=== PATIENT | female | born 1975 | race Caucasian/White ===

== ENCOUNTER 2024-06-04 13:41 | Outpatient (OUT) | payer OTHER, SELFPAY ==
--- NOTE | 2024-06-04 15:03 | P.CN_ITS ---
Consult Note: HPI Data of Consult Patient: new to practice Consult date: 06/04/24 Requesting Physician: Giovanny Estrada MD Primary Care Provider: Alice Silvestre NP Consult Narrative Reason for consult: neck pain Narrative: 48yof who presents for evaluation. longstanding neck, posterior head, bilateral shoulder pain. imaging reviewed, significant for multilevel facet arthropathy throughout cervical spine. has continued in a 6 week course of provider directed home exercises, but has not endorsed lasting relief. uses t#3 and gabapentin, which is prescribed by pcp. denies adverse med side effects. cc:: CC: Giovanny Estrada MD Review of Systems ROS Status of ROS 10 or more systems reviewed and unremark able except as noted in history and below Exam Narrative Exam Narrative: Psych-alert and oriented x 3.? Attentive and appropriate, constitutionally normal, displays normal mood and affect per situation.? There are no obvious deficits in memory, reasoning, or intellect.? Skin-no obvious rashes, bruising, or erythema noted to the patient's area of pain. Extremities-upper extremities are warm with minimal edema and palpable pulses. Cervical- tenderness to palpation noted in the cervical spine and paraspinal musculature.? Pain is elicited with extension, and lateral rotation of the cervical spine.? Range of motion is slightly diminished due to pain. Facet loading maneuvers are positive bilaterally.? Coordination remains intact.? Gait remains non-antalgic. Assessment and Plan Assessment and Plan (1) Cervical spondylosis: Plan 48yof who presents for evaluation. failed conservative measures, as noted. imaging reviewed, as noted. given symptoms and imaging, prudent to attempt diagnostic bilateral c3-4, 4-5 medial branch blocks under fluoroscopic guidance with intention of proceeding to radiofrequency ablation. she is in agreement. meds reviewed, no changes. follow up after procedure.
== END 2024-06-04 13:42 | disposition home or self-care (01) ==
PROVIDERS: PCP Nurse Practitioner Adult Health; Visit Provider Anesthesiology
DX: M47.812 Spondylosis without myelopathy or radiculopathy, cervical region (principal)
CPT/HCPCS: G0463

== ENCOUNTER 2024-06-25 08:21 | Day surgery (SDC) | payer OTHER, SELFPAY ==
[2024-06-25 09:35] VITALS: BP 113/70; PULSE 75; TEMP 36.2; O2SAT 98
[2024-06-25 09:54] VITALS: BP 109/74; PULSE 70; O2SAT 98
[2024-06-25 09:56] VITALS: BP 111/73; PULSE 73; O2SAT 98
[2024-06-25] MEDS: LIDOCAINE HCL 2% 400 MG/20 ML MDV INJ (09:59)
[2024-06-25] MEDS: BUPIVACAINE HCL 0.25% PF 25 MG/10 ML VIAL 6 ML INJ (09:59)
--- NOTE | 2024-06-25 10:03 | W.PM.PROCNOT ---
Date of procedure: 06/25/24 Pre-op diagnosis: Pain due to cervical spondylosis Post-op diagnosis: same as pre-op Procedure: Procedure: Bilateral C3-4, 4-5 medial branch block Medications: Bupivacaine 0.25% 6cc The patient was seen and examined in the preoperative holding area.? The informed consent was obtained and placed on the chart.? The patient was brought to the medical procedure unit and placed in the prone position.? A timeout was completed verifying correct patient, procedure site, positioning, plan, and special equipment.? Using aseptic technique, the needle was placed at left C3.? Under direct fluoroscopic visualization, a Quincke tip needle was advanced to the midpoint of the waist of the articular pillar at the respective medial branch segment. The above-mentioned injectate was placed in a 1 mL aliquot proceeded by negative aspiration.? The needle was removed.? The procedure was completed at all left C4, 5. The same procedure, at the same levels, was then completed on the right side. Insertion site was covered.? Patient was taken to the postprocedural recovery area and monitored for an appropriate length of time before found suitable for discharge in the accompaniment of a responsible adult. Anesthesia: Local Surgeon: Giovanny Estrada Pathology: none sent Condition: stable Disposition: no change
== END 2024-06-25 10:04 | disposition home or self-care (01) ==
LOC: SURGOUT 08:22
PROVIDERS: PCP Nurse Practitioner Adult Health; Visit Provider Anesthesiology
DX: M47.812 Spondylosis without myelopathy or radiculopathy, cervical region (principal)
CPT/HCPCS: 64490; 64491; J0665

== ENCOUNTER 2024-07-05 13:06 | Outpatient (OUT) | payer OTHER, SELFPAY ==
--- NOTE | 2024-07-05 13:26 | PM.CN ---
Consult Note: HPI Data of Consult Patient: known to practice within the last 3 years Requesting Physician: Zoe Lucero NP Primary Care Provider: Alice Silvestre NP Consult Narrative Reason for consult: f/u Narrative: Sabrina Hoffman a pleasant 48 year old female presents for evaluation and management of chronic neck pain unresponsive to heat/ice, tylenol, NSAIDs, PT/HEP greater than 6 weeks. pt has a longstanding hx of neck pain secondary to cervical spondylosis and cervical DDD. currently takes tylenol #3, gabapentin, valium PRN through PCP with minimal benefit. recently underwent bilateral C3-4 C4-5 MBB #1 with little relief per pt, preop pain 7/10 decreasing to 5/10. cc:: CC: Zoe Lucero NP Review of Systems ROS Musculoskeletal Reports: neck pain PFSH PFSH Medical History Upper back pain ?M54.9 - Dorsalgia, unspecified (ICD-10) TMJ (dislocation of temporomandibular joint) ?S03.00XA - Dislocation of jaw, unspecified side, initial encounter (ICD-10) Osteoarthritis ?M19.90 - Unspecified osteoarthritis, unspecified site (ICD-10) Low back pain ?M54.50 - Low back pain, unspecified (ICD-10) Neck pain ?M54.2 - Cervicalgia (ICD-10) Anxiety ?F41.9 - Anxiety disorder, unspecified (ICD-10) Surgical History H/O gynecological procedure ?Z98.890 - Other specified postprocedural states (ICD-10) History of tonsillectomy ?Z90.89 - Acquired absence of other organs (ICD-10) H/O foot surgery ?Z98.890 - Other specified postprocedural states (ICD-10) H/O total hip arthroplasty ?Z96.649 - Presence of unspecified artificial hip joint (ICD-10) Meds Home Medications and Allergies Home Medications ?Medication ?Instructions ?Recorded ?Confirmed ?Type acetaminophen 300 mg-codeine 30 mg 1 tab PO TID 06/04/24 06/25/24 History tablet diazepam 5 mg tablet 5 mg PO BID 06/04/24 06/25/24 History gabapentin 300 mg capsule 600 mg PO TID 06/04/24 06/25/24 History Allergies Allergy/AdvReac Type Severity Reaction Status Date / Time nalbuphine (From Nubain) Allergy Mild Anxiety Verified 06/04/24 15:38 Penicillins Allergy Rash Verified 06/04/24 15:38 Exam Neck & C-Spine Cervical spine: cervical ROM normal, pain with cervical ROM, cervical spine tenderness, paracervical muscle tenderness and trapezius muscle tenderness; no paracervical muscle spasm Other: negative spurlings sensation intact BUE, intermittent right C5,6,7 radiculopathy per pt on exam positive tinnels to left side, bilaterally positive phalens Results Additional Findings Additional findings: If on a controlled substance or opioids, I have checked an [place]AR[place] report on this patient and there are no aberrancies noted in the prescribing history.??If on a controlled substance or opioid a drug screen was completed and reviewed within the last year, and if there has not been a drug screen completed we ordered one today to monitor higher risk, state monitored pain medication use. As part of providing excellent, safe, comprehensive care, the following was completed at our patient's visit: 1. A medication reconciliation and review to ensure accurate knowledge of current/active medications, including asking our patients to inform us about any neyp-nwp-xnzskac medications or herbal remedies/nutritional supplements/alternative remedies. 2. A review to specifically ensure our patients have had annual screening for screening for depression, screening for tobacco use, and screening for unhealthy alcohol use. For concerning screenings had a discussion with the patient, provided patient education, and recommended follow-up with primary care provider when appropriate. If patient noted with a risk of falling, they received education on strength, gait, and balance training to prevent future risk of falling. Portions of this note may have been carried over from the previous visit and updated as appropriate. Please note this office utilizes paper charting in addition to the electronic medical record. A list of current medications, vitals, and PMH is available there as the clinical staff outside of myself do not have access to [facility] charting during the clinic day operations. As part of providing quality comprehensive care the current medications, vitals, and PMH were reviewed in the paper chart. Assessment and Plan Assessment and Plan (1) Cervical spondylosis: Assessment and Plan: The patient has had over 3 months of moderate to severe neck pain with functional impairment and inadequate response to conservative care including NSAIDS (unless there are contraindication such as concurrent blood thinners), multiple oral or topical pain medications, and home exercise program/physical therapy.? Patient has completed >6 weeks of guided home exercise program and/or formal physical therapy program without relief of their symptoms.? I have reviewed the imaging of the cervical spine and no red flags were identified.? The imaging reveals radiographic findings consistent with cervical spondylosis and cervical DDD (2) Degenerative disc disease, cervical: Plan update cervical MRI to assess chronic pain unresponsive to conservative therapies and PT/HEP greater than 6 weeks in consideration of additional interventional therapy vs NS consultation consider EMG, possible CTS to bilateral wrists left>right start baclofen 5-10mg BID PRN pain/spasms, not to be taken with valium as discussed f/u to review MRI
== END 2024-07-05 13:07 | disposition home or self-care (01) ==
PROVIDERS: PCP Nurse Practitioner Adult Health; Visit Provider Nurse Practitioner
DX: M47.812 Spondylosis without myelopathy or radiculopathy, cervical region (principal); M50.30 Other cervical disc degeneration, unspecified cervical region
CPT/HCPCS: G0463

== ENCOUNTER 2024-08-30 14:32 | Outpatient (OUT) | payer OTHER, SELFPAY ==
--- NOTE | 2024-08-30 14:54 | P.CN_ITS ---
Consult Note: HPI Data of Consult Patient: known to practice within the last 3 years Requesting Physician: Zoe Lucero NP Primary Care Provider: Alice Silvestre NP Consult Narrative Reason for consult: f/u Narrative: Sabrina Hoffman a pleasant 48 year old female presents for evaluation and management of chronic neck pain unresponsive to heat/ice, tylenol, NSAIDs, PT/HEP greater than 6 weeks. pt has a longstanding hx of neck pain secondary to cervical spondylosis and cervical DDD. currently takes tylenol #3, gabapentin, valium PRN through PCP with minimal benefit. recently underwent bilateral C3-4 C4-5 MBB #1 with little relief per pt, preop pain 7/10 decreasing to 5/10. At last visit I ordered a cervical MRI which was denied by insurance due to no recent formal PT. Since last visit pt has attended 4 visits of PT without significant improvement in pain, per pt PT has noticed her plateau and recommended she follow up in office for further treatment. cc:: CC: Zoe Lucero NP Review of Systems ROS Status of ROS 10 or more systems reviewed and unremark able except as noted in history and below PFSH PFS Medical History Upper back pain ?M54.9 - Dorsalgia, unspecified (ICD-10) TMJ (dislocation of temporomandibular joint) ?S03.00XA - Dislocation of jaw, unspecified side, initial encounter (ICD-10) Osteoarthritis ?M19.90 - Unspecified osteoarthritis, unspecified site (ICD-10) Low back pain ?M54.50 - Low back pain, unspecified (ICD-10) Neck pain ?M54.2 - Cervicalgia (ICD-10) Anxiety ?F41.9 - Anxiety disorder, unspecified (ICD-10) Surgical History H/O gynecological procedure ?Z98.890 - Other specified postprocedural states (ICD-10) History of tonsillectomy ?Z90.89 - Acquired absence of other organs (ICD-10) H/O foot surgery ?Z98.890 - Other specified postprocedural states (ICD-10) H/O total hip arthroplasty ?Z96.649 - Presence of unspecified artificial hip joint (ICD-10) Meds Home Medications and Allergies Home Medications ?Medication ?Instructions ?Recorded ?Confirmed ?Type acetaminophen 300 mg-codeine 30 mg 1 tab PO TID 06/04/24 06/25/24 History tablet diazepam 5 mg tablet 5 mg PO BID 06/04/24 06/25/24 History gabapentin 300 mg capsule 600 mg PO TID 06/04/24 06/25/24 History baclofen 10 mg tablet See Rx Instructions .Route 07/05/24 Rx .COMPLEX #60 tabs Allergies Allergy/AdvReac Type Severity Reaction Status Date / Time nalbuphine (From Nubain) Allergy Mild Anxiety Verified 06/04/24 15:38 Penicillins Allergy Rash Verified 06/04/24 15:38 Exam Constitutional Documenting provider has reviewed patient's vital signs: yes Common normals: no apparent distress, oriented x3, healthy appearing, alert and well nourished General appearance: cooperative HENMT Common normals: normocephalic, hearing grossly normal bilaterally and moist oral mucous membranes Head and scalp: normocephalic Eye Common normals: PERRL Pupil: PERRL Neck & C-Spine Common normals: full ROM General: normal visual inspection Cervical spine: cervical ROM normal, pain with cervical ROM, cervical spine tenderness, paracervical muscle tenderness and trapezius muscle tenderness; no paracervical muscle spasm Other: negative spurlings sensation intact BUE, intermittent right C5,6,7 radiculopathy per pt strength 4/5 in RUE and 5/5 in LUE Chest Common normals: inspection of chest normal Respiratory Common normals: normal respiratory effort, no retractions and no use of accessory muscles Neuro Common normals: oriented x3, CN's II-XII intact bilaterally, moves all extremities, no focal motor deficits, no sensory deficits noted and deep tendon reflexes 2+ bilaterally Sensorium/orientation: alert Motor exam: no movement abnormalities noted Psych Common normals: mental status grossly normal, thought process normal, cooperative, affect normal, speech normal and activity/motor behavior normal Speech: normal speech Thought process: normal thought process Results Additional Findings Additional findings: If on a controlled substance or opioids, I have checked an [place]AR[place] report on this patient and there are no aberrancies noted in the prescribing history.??If on a controlled substance or opioid a drug screen was completed and reviewed within the last year, and if there has not been a drug screen completed we ordered one today to monitor higher risk, state monitored pain medication use. As part of providing excellent, safe, comprehensive care, the following was completed at our patient's visit: 1. A medication reconciliation and review to ensure accurate knowledge of current/active medications, including asking our patients to inform us about any bzwa-buv-zurkpam medications or herbal remedies/nutritional supplements/alternative remedies. 2. A review to specifically ensure our patients have had annual screening for screening for depression, screening for tobacco use, and screening for unhealthy alcohol use. For concerning screenings had a discussion with the patient, provided patient education, and recommended follow-up with primary care provider when appropriate. If patient noted with a risk of falling, they received education on strength, gait, and balance training to prevent future risk of falling. Portions of this note may have been carried over from the previous visit and updated as appropriate. Please note this office utilizes paper charting in addition to the electronic medical record. A list of current medications, vitals, and PMH is available there as the clinical staff outside of myself do not have access to [employer] charting during the clinic day operations. As part of providing quality comprehensive care the current medications, vitals, and PMH were reviewed in the paper chart. Assessment and Plan Assessment and Plan (1) Degenerative disc disease, cervical: (2) Cervical spondylosis: (3) Myalgia, other site: Plan DC baclofen due to ineffectiveness, start tizanidine 4-8mg BID PRN pain/spasms update cervical MRI without contrast to assess chronic neck pain secondary to DDD and cervical spondylosis unresponsive to greater than 6 weeks of provider guided HEP, 4 weeks of PT without progress, heat, ice, tylenol, advil, and cervical facet RFAs. essential to update in consideration of additional interventional therapy vs NS consultation f/u after MRI complete
== END 2024-08-30 14:33 | disposition home or self-care (01) ==
PROVIDERS: PCP Nurse Practitioner Adult Health; Visit Provider Nurse Practitioner
DX: M51.369 Other intervertebral disc degeneration, lumbar region without mention of lumbar back pain or lower extremity pain (principal); M47.812 Spondylosis without myelopathy or radiculopathy, cervical region; M79.18 Myalgia, other site
CPT/HCPCS: G0463

== ENCOUNTER 2024-11-19 13:17 | Outpatient (OUT) | payer OTHER, SELFPAY ==
--- NOTE | 2024-11-19 13:21 | MR_ITS ---
[address] [address] Patient Name: CHIDI BAEZ MRN: [facility]:[id number] date: 1975 Sex: F Assigned Patient Location: MRI Current Patient Location: MRI Accession/Order Number: [id number] Exam Date: 11/19/2024 14:56 Report Date: 11/19/2024 15:00 At the request of: JONATHAN CHAVIRA NP Procedure: MR cervical spine wo con MRI Cervical Spine without contrast TECHNIQUE: Multiplanar T1 and T2-weighted imaging of the cervical spine obtained. HISTORY: Chronic neck pain. COMPARISON: None BONY ALIGNMENT: Straightening with mild degenerative listhesis BONY LESION: None CERVICAL CORD: No significant demyelination. SKULL BASE: unremarkable. PREVERTEBRAL SOFT TISSUES: Unremarkable NASOPHARYNGEAL REGION: unremarkable. VERTEBRAL ARTERIES: unremarkable. POSTSURGICAL CHANGES: None CERVICAL SOFT TISSUES: Unremarkable C1-2 LEVEL: Unremarkable C2-3: Mild disc space narrowing. No disc herniation. Patent central canal. Mild bilateral neural foraminal narrowing greater on the left C3-4: Mild disc space narrowing. Diffuse disc bulge. Mild crowding the cord. No cord edema or hemorrhage. Mild bilateral neural foraminal narrowing greater on the right. C4-5: Disc space narrowing. Diffuse disc bulge. Right paracentral disc protrusion. Flattening of the cord. Mild crowding. No cord edema or hemorrhage. Mild bilateral neural foraminal narrowing C5-6: Marked disc space narrowing and endplate changes. Diffuse disc bulge and osteophyte complex. Moderate crowding of the cord. No cord edema or hemorrhage. Mild bilateral neural foraminal narrowing greater on the right. C6-7: Disc space narrowing. Diffuse disc bulge. Mild right paracentral disc protrusion. Mild crowding the cord. No cord edema or hemorrhage. Mild bilateral neural foraminal narrowing greater on the right. C7-T1: Mild disc space narrowing. Mild disc bulge. Mild crowding of the cord. No cord edema or hemorrhage. Patent neural foramen. MR/MR cervical spine wo con IMPRESSION: Multilevel discovertebral degenerative changes. Levels of mild to moderate crowding the cord as above. No cord edema or hemorrhage. Neural foraminal narrowing as above. Impression dictated by: Ady Hidalgo M.D. 11/19/2024 3:00 PM Dictation Location: [facility]20 Electronically authenticated by: [id number] Y Date: 11/19/2024 15:00
== END 2024-11-19 13:18 | disposition home or self-care (01) ==
LOC: MRI 13:17
PROVIDERS: PCP Nurse Practitioner Adult Health; Visit Provider Nurse Practitioner
DX: M50.320 Other cervical disc degeneration, mid-cervical region, unspecified level (principal); M47.812 Spondylosis without myelopathy or radiculopathy, cervical region
CPT/HCPCS: 72141

== ENCOUNTER 2024-12-12 14:24 | Outpatient (OUT) | payer OTHER, SELFPAY ==
--- NOTE | 2024-12-12 14:54 | PM.CN ---
Consult Note: HPI Data of Consult Patient: known to practice within the last 3 years Requesting Physician: Zoe Lucero NP Primary Care Provider: Alice Silvestre NP Consult Narrative Reason for consult: f/u Narrative: Sabrina Hoffman a pleasant 48 year old female presents for evaluation and management of chronic neck pain unresponsive to heat/ice, tylenol, NSAIDs, PT/HEP greater than 6 weeks. pt has a longstanding hx of neck pain secondary to cervical spondylosis and cervical DDD. currently takes tylenol #4, gabapentin, valium PRN through PCP with minimal benefit. failed baclofen and tizanidine. recently underwent bilateral C3-4 C4-5 MBB #1 with little relief per pt, preop pain 7/10 decreasing to 5/10. since last visit her MRI was approved and completed, with results below. pt noticing increased heaviness of her head/neck since last visit. notes right upper extremity numbness and tingling, denies weakness. reports daily headache. cc:: CC: Zoe Lucero NP Review of Systems ROS Status of ROS 10 or more systems reviewed and unremarkable except as noted in history and below [facility] [place] Medical History Upper back pain ?M54.9 - Dorsalgia, unspecified (ICD-10) TMJ (dislocation of temporomandibular joint) ?S03.00XA - Dislocation of jaw, unspecified side, initial encounter (ICD-10) Osteoarthritis ?M19.90 - Unspecified osteoarthritis, unspecified site (ICD-10) Low back pain ?M54.50 - Low back pain, unspecified (ICD-10) Neck pain ?M54.2 - Cervicalgia (ICD-10) Anxiety ?F41.9 - Anxiety disorder, unspecified (ICD-10) Surgical History H/O gynecological procedure ?Z98.890 - Other specified postprocedural states (ICD-10) History of tonsillectomy ?Z90.89 - Acquired absence of other organs (ICD-10) H/O foot surgery ?Z98.890 - Other specified postprocedural states (ICD-10) H/O total hip arthroplasty ?Z96.649 - Presence of unspecified artificial hip joint (ICD-10) Meds Home Medications and Allergies Home Medications ?Medication ?Instructions ?Recorded ?Confirmed ?Type acetaminophen 300 mg-codeine 30 mg 1 tab PO TID 06/04/24 06/25/24 History tablet diazepam 5 mg tablet 5 mg PO BID 06/04/24 06/25/24 History gabapentin 300 mg capsule 600 mg PO TID 06/04/24 06/25/24 History baclofen 10 mg tablet See Rx Instructions .Route 07/05/24 Rx .COMPLEX #60 tabs tizanidine 4 mg tablet See Rx Instructions .Route 08/30/24 Rx .COMPLEX PRN muscle spasticity #120 tabs Allergies Allergy/AdvReac Type Severity Reaction Status Date / Time nalbuphine (From [employer]) Allergy Mild Anxiety Verified 06/04/24 15:38 Penicillins Allergy Rash Verified 06/04/24 15:38 Exam Constitutional Documenting provider has reviewed patient's vital signs: yes Common normals: no apparent distress, oriented x3, healthy appearing, alert and well nourished General appearance: cooperative HENMT Common normals: normocephalic, hearing grossly normal bilaterally and moist oral mucous membranes Head and scalp: normocephalic Eye Common normals: PERRL Pupil: PERRL Neck & C-Spine Common normals: full ROM General: normal visual inspection Cervical spine: cervical ROM normal, pain with cervical ROM, cervical spine tenderness, paracervical muscle tenderness and trapezius muscle tenderness; no paracervical muscle spasm and Lhermitte's sign negative Other: negative spurlings sensation intact BUE, intermittent right C5,6,7 radiculopathy per pt tenderness over bilateral greater occipital nerves strength 4/5 in RUE and 5/5 in LUE Chest Common normals: inspection of chest normal Respiratory Common normals: normal respiratory effort, no retractions and no use of accessory muscles Neuro Common normals: oriented x3, CN's II-XII intact bilaterally, moves all extremities, no focal motor deficits, no sensory deficits noted and deep tendon reflexes 2+ bilaterally Sensorium/orientation: alert Motor exam: no movement abnormalities noted Psych Common normals: mental status grossly normal, thought process normal, cooperative, affect normal, speech normal and activity/motor behavior normal Speech: normal speech Thought process: normal thought process Results Imaging Cervical MRI: Attestation: I have reviewed the pertinent imaging results. Radiologist's impression: C1-2 LEVEL: Unremarkable C2-3: Mild disc space narrowing. No disc herniation. Patent central canal. Mild bilateral neural foraminal narrowing greater on the left C3-4: Mild disc space narrowing. Diffuse disc bulge. Mild crowding the cord. No cord edema or hemorrhage. Mild bilateral neural foraminal narrowing greater on the right. C4-5: Disc space narrowing. Diffuse disc bulge. Right paracentral disc protrusion. Flattening of the cord. Mild crowding. No cord edema or hemorrhage. Mild bilateral neural foraminal narrowing C5-6: Marked disc space narrowing and endplate changes. Diffuse disc bulge and osteophyte complex. Moderate crowding of the cord. No cord edema or hemorrhage. Mild bilateral neural foraminal narrowing greater on the right. C6-7: Disc space narrowing. Diffuse disc bulge. Mild right paracentral disc protrusion. Mild crowding the cord. No cord edema or hemorrhage. Mild bilateral neural foraminal narrowing greater on the right. C7-T1: Mild disc space narrowing. Mild disc bulge. Mild crowding of the cord. No cord edema or hemorrhage. Patent neural foramen. Additional Findings Additional findings: If on a controlled substance or opioids, I have checked an [place] report on this patient and there are no aberrancies noted in the prescribing history.??If on a controlled substance or opioid a drug screen was completed and reviewed within the last year, and if there has not been a drug screen completed we ordered one today to monitor higher risk, state monitored pain medication use. As part of providing excellent, safe, comprehensive care, the following was completed at our patient's visit: 1. A medication reconciliation and review to ensure accurate knowledge of current/active medications, including asking our patients to inform us about any [id number] medications or herbal remedies/nutritional supplements/alternative remedies. 2. A review to specifically ensure our patients have had annual screening for screening for depression, screening for tobacco use, and screening for unhealthy alcohol use. For concerning screenings had a discussion with the patient, provided patient education, and recommended follow-up with primary care provider when appropriate. If patient noted with a risk of falling, they received education on strength, gait, and balance training to prevent future risk of falling. Portions of this note may have been carried over from the previous visit and updated as appropriate. Please note this office utilizes paper charting in addition to the electronic medical record. A list of current medications, vitals, and PMH is available there as the clinical staff outside of myself do not have access to [employer] charting during the clinic day operations. As part of providing quality comprehensive care the current medications, vitals, and PMH were reviewed in the paper chart. Assessment and Plan Assessment and Plan (1) Cervical spinal stenosis: Assessment and Plan: The patient has had over 3 months of moderate to severe neck and intermittent RUE pain with functional impairment and inadequate response to conservative care including NSAIDS (unless there are contraindication such as concurrent blood thinners), multiple oral or topical pain medications, and home exercise program/physical therapy.? Patient has completed >6 weeks of guided home exercise program and/or formal physical therapy program without relief of their symptoms.? I have reviewed the imaging of the cervical spine.? The Oswestry Disability Index was completed, and the patient scored a 50%.? The patient noted the following:?? moderate to severe pain impacting sleeping, sitting, ADLs, lifting, walking, travel, social life? (2) Cervical radiculopathy: (3) Degenerative disc disease, cervical: (4) Cervical spondylosis: (5) Myalgia, other site: Plan cervical MRI reviewed with pt, with worsening radicular pain and reports of her head feeling heavy I will refer to NS for stat evaluation prior to cervical ESIs. defer additional medication management at this time. f/u after NS consultation.
== END 2024-12-12 14:25 | disposition home or self-care (01) ==
LOC: PM 14:24
PROVIDERS: PCP Nurse Practitioner Adult Health; Visit Provider Nurse Practitioner
DX: M48.02 Spinal stenosis, cervical region (principal); M54.12 Radiculopathy, cervical region; M50.30 Other cervical disc degeneration, unspecified cervical region; M47.812 Spondylosis without myelopathy or radiculopathy, cervical region; M79.18 Myalgia, other site
CPT/HCPCS: G0463